=== PATIENT | male | born 1985 | race Caucasian/White ===

== ENCOUNTER → 2018-12-11 | Outpatient (CLI) | payer BC ==
--- NOTE | 2018-12-11 11:14 | RAD ---
Bilateral inguinal sonography Clinical indications: Left inguinal pain/lump. Right inguinal lump which is smaller than the left. Symptoms present for 2 weeks. FINDINGS: Sonography of the palpable lump of the left groin was performed. Multiple abnormal appearing enlarged lymph nodes are seen with hypervascularity. The largest measures 25 mm in size. Abnormal thickening of the cortex is seen with loss of central echogenic hilum. Sonography of the palpable lump of the right groin demonstrates a single 17 mm lymph node. The cortex measures 4 mm in greatest thickness which is abnormally thickened. This lymph node does not appear as hypervascular as the lymph nodes on the left side. IMPRESSION: Bilateral inguinal lymphadenopathy which is more prominent and hypervascular on the left side. Given the abnormal appearance of these lymph nodes on the left side, lymphoma is a possibility. The cortex of the single right inguinal lymph node appears abnormally thickened as well. Electronically signed by: Jason Roy MD (12/11/2018 11:11 AM) [id number]
== END | disposition home or self-care (01) ==
LOC: US 10:16
PROVIDERS: ATTEND Family Medicine
DX: K40.90 Unilateral inguinal hernia, without obstruction or gangrene, not specified as recurrent (principal); R59.0 Localized enlarged lymph nodes
CPT/HCPCS: 76882